=== PATIENT | female | born 1970 ===

== ENCOUNTER 2025-01-12 08:00 | Day surgery (SDC) | payer OTHER ==
[2025-01-12] MEDS ORDERED: MIDAZOLAM HCL 2 MG/2 ML VIAL IV ONE (12:00)
[2025-01-12] MEDS ORDERED: fentaNYL CITRATE 50 MCG/ML AMPUL IV PUSH ONE (12:00)
[2025-01-12] MEDS ORDERED: DIPHENHYDRAMINE HCL 50 MG/ML VIAL 1ML IV ONE (12:00)
== END 2025-01-12 13:35 | disposition home or self-care (01) ==
LOC: CIR.AMB 08:00
PROVIDERS: ATTEND Colon & Rectal Surgery
DX: C20 Malignant neoplasm of rectum (principal); Z91.041 Radiographic dye allergy status

== ENCOUNTER 2025-02-16 11:11 | Inpatient (IN) | payer OTHER ==
[~2025-02-16] VITALS: Wt 44.0 kg
[2025-02-22] MEDS ORDERED: RINGERS SOLUTION,LACTATED 1,000 ML IV SCH (14:30)
[2025-02-22 17:46] VITALS: BP 133/74; O2SAT 100
[2025-02-22 20:26] LABS: INR 1.17
[2025-02-22 20:40] LABS: T4 TOTAL 10.64 UG/DL (4.8-13.9); TSH 2.01 uIU/mL (0.358-3.74)
[2025-02-23 02:23] VITALS: BP 133/72; O2SAT 98
[2025-02-23 08:00] VITALS: BP 131/77; O2SAT 97
[2025-02-23] MEDS ORDERED: FAMOTIDINE/PF 20 MG/2 ML VIAL IV SCH (09:00)
[2025-02-23 12:36] LABS: BASO % 0.4 % (0.1-1.2); EOS # 0.02 (0.04-0.54); EOS % 0.2 % (0.7-7.0); LYMPH # 1.31 (1.18-3.74); LYMPH % 15.9 % (19.3-53.1); MEAN PLATELET VOLUME 8.70 fl (9.4-12.4); MONO # 0.77 (0.24-0.82); MONO % 9.4 % (4.7-12.5); NEUT # 6.07 (1.56-6.13); NEUT % 73.7 % (34.0-71.1); RED CELL DISTRIBUTION WIDTH 16.7 % (11.6-14.4)
[2025-02-23 13:17] LABS: NEUTROPHILS MAN 69.0 %
[2025-02-23 13:18] LABS: BAND MAN 5.0 %; LYMPHOCYTE MAN 13.0 %; MONOCYTE MAN 8.0 %
[2025-02-23] MEDS ORDERED: PHYTONADIONE 10 MG/ML AMPUL IV NR (14:00)
[2025-02-23] MEDS ORDERED: POLYETHYLENE GLYCOL 3350 238 GM POWDER PO NR (14:00)
[2025-02-23 16:00] VITALS: BP 118/76; O2SAT 99
[2025-02-23] MEDS ORDERED: BISACODYL 5 MG TABLET.EC PO SCH (21:00)
[2025-02-23 23:52] VITALS: BP 128/80; O2SAT 98
[2025-02-24] MEDS ORDERED: MINERAL OIL 133 ML ENEMA RECTAL SCH (05:00)
[2025-02-24] MEDS ORDERED: BUPIVACAINE HCL/MPF 0.5% 30ML VIAL ONE (07:11)
[2025-02-24] MEDS ORDERED: LIDOCAINE HCL 1%/EPINEPHRINE 20ML VIAL IJ ONE (07:12)
[2025-02-24] MEDS ORDERED: CEFTRIAXONE SODIUM 2,000 MG VIAL ONE (07:21)
[2025-02-24] MEDS ORDERED: METRONIDAZOLE/SODIUM CHLORIDE 500 MG/100 ML PIGGYBACK IV ONE (07:22)
[2025-02-24] MEDS ORDERED: POVIDONE-IODINE 118 ML BOTT TOP ONE (07:55)
[2025-02-24] MEDS ORDERED: CHLORHEXIDINE GLUCONATE 120 ML BOTTLE TOP ONE (07:55)
[2025-02-24] MEDS ORDERED: DEXTROSE 50 % IN WATER 0.5 G/ML DISP.SYRIN IV PRN (11:45)
[2025-02-24] MEDS ORDERED: RINGERS SOLUTION,LACTATED 1,000 ML IV SCH (11:45)
[2025-02-24] MEDS ORDERED: OxyCODONE HCL 5 MG TABLET (ROXICODONE) PO PRN (11:45)
[2025-02-24] MEDS ORDERED: MORPHINE SULFATE 4 MG/ML CARTRIDGE IV PRN (11:45)
[2025-02-24] MEDS ORDERED: ONDANSETRON HCL 2 MG/ML VIAL IV PRN (11:45)
[2025-02-24 12:53] LABS: BASO % 0.3 % (0.1-1.2); EOS # 0.02 (0.04-0.54); EOS % 0.3 % (0.7-7.0); LYMPH # 1.25 (1.18-3.74); LYMPH % 16.7 % (19.3-53.1); MEAN PLATELET VOLUME 9.20 fl (9.4-12.4); MONO # 0.48 (0.24-0.82); MONO % 6.4 % (4.7-12.5); NEUT # 5.71 (1.56-6.13); NEUT % 76.0 % (34.0-71.1); RED CELL DISTRIBUTION WIDTH 16.8 % (11.6-14.4)
[2025-02-24] MEDS ORDERED: HYOSCYAMINE SULFATE 0.125 MG TAB.SUBL SL SCH (13:00)
[2025-02-24 13:44] LABS: BUN CREA RATIO 11.0 (7.0-25.0); CREATININE SERUM 0.65 mg/dL (0.55-1.02); GFR 94.99; GLUCOSE FASTING 101.0 mg/dL (65-100); OSMOLALITY SERUM 278.0 MOSM/KG (275-295)
[2025-02-24] MEDS ORDERED: ACETAMINOPHEN 500 MG GEL..CAP PO SCH (14:00)
[2025-02-24] MEDS ORDERED: MAGNESIUM SULFATE IN WATER 50 ML IV NR (14:15)
[2025-02-24 16:00] VITALS: BP 106/54; O2SAT 99
[2025-02-24] MEDS ORDERED: POTASSIUM CHLORIDE 20MEQ/100ML H2O PB IV NR (16:30)
[2025-02-24] MEDS ORDERED: CELECOXIB 200 MG CAPSULE PO SCH (17:00)
[2025-02-24] MEDS ORDERED: LACTULOSE 20 G/30 ML BLIST.PACK PO SCH (17:00)
[2025-02-24] MEDS ORDERED: GABAPENTIN 300 MG CAPSULE PO SCH (17:00)
[2025-02-24] MEDS ORDERED: FAMOTIDINE/PF 20 MG/2 ML VIAL IV PUSH SCH (21:00)
[2025-02-25 00:30] VITALS: BP 105/62; O2SAT 98
[2025-02-25] MEDS ORDERED: MINERAL OIL 133 ML ENEMA RECTAL SCH (05:00)
[2025-02-25 06:26] LABS: BASO % 0.3 % (0.1-1.2); EOS # 0.10 (0.04-0.54); EOS % 1.3 % (0.7-7.0); LYMPH # 1.32 (1.18-3.74); LYMPH % 17.4 % (19.3-53.1); MEAN PLATELET VOLUME 9.00 fl (9.4-12.4); MONO # 0.43 (0.24-0.82); MONO % 5.7 % (4.7-12.5); NEUT # 5.67 (1.56-6.13); NEUT % 74.9 % (34.0-71.1); RED CELL DISTRIBUTION WIDTH 17.1 % (11.6-14.4)
[2025-02-25 07:01] LABS: BUN CREA RATIO 9.0 (7.0-25.0); CREATININE SERUM 0.86 mg/dL (0.55-1.02); GFR 68.76; GLUCOSE FASTING 92.0 mg/dL (65-100); OSMOLALITY SERUM 283.0 MOSM/KG (275-295)
[2025-02-25] MEDS ORDERED: AMINO ACIDS/PROTEIN HYDROLYS 30 ML BLIST.PACK PO SCH (09:00)
[2025-02-25 09:01] VITALS: BP 135/72; O2SAT 96
[2025-02-25] MEDS ORDERED: MAGNESIUM SULFATE IN WATER 50 ML IV NR (13:00)
[2025-02-25] MEDS ORDERED: POTASSIUM CHLORIDE 20MEQ/100ML H2O PB IV NR (16:00)
[2025-02-25 16:15] VITALS: BP 125/73; O2SAT 98
[2025-02-25] MEDS ORDERED: ENOXAPARIN SODIUM 40 MG/0.4 ML SYRINGE SUBCUTANEO SCH (17:00)
[2025-02-26 00:34] VITALS: BP 121/66; O2SAT 98
[2025-02-26 06:12] LABS: BASO % 0.2 % (0.1-1.2); EOS # 0.13 (0.04-0.54); EOS % 1.4 % (0.7-7.0); LYMPH # 1.57 (1.18-3.74); LYMPH % 17.1 % (19.3-53.1); MEAN PLATELET VOLUME 8.80 fl (9.4-12.4); MONO # 0.50 (0.24-0.82); MONO % 5.5 % (4.7-12.5); NEUT # 6.90 (1.56-6.13); NEUT % 75.4 % (34.0-71.1); RED CELL DISTRIBUTION WIDTH 17.2 % (11.6-14.4)
[2025-02-26 06:47] LABS: BUN CREA RATIO 20.0 (7.0-25.0); CREATININE SERUM 0.81 mg/dL (0.55-1.02); GFR 73.68; GLUCOSE FASTING 112.0 mg/dL (65-100); OSMOLALITY SERUM 285.0 MOSM/KG (275-295)
[2025-02-26 08:53] VITALS: BP 123/77; O2SAT 99
[2025-02-26] MEDS ORDERED: ENOXAPARIN SODIUM 40 MG/0.4 ML SYRINGE SUBCUTANEO SCH (09:00)
[2025-02-26] MEDS ORDERED: POTASSIUM CHLORIDE 8 MEQ TABLET PO STA (10:07)
[2025-02-26] MEDS ORDERED: GABAPENTIN300 MG PO (15:45)
[2025-02-26] MEDS ORDERED: PAIN RELIEVER500 M2 PO (15:45)
[2025-02-26 16:00] VITALS: BP 147/71; O2SAT 98
== END 2025-02-26 22:03 | disposition home or self-care (01) | DRG 331 ==
LOC: SURH 02-22 11:41
PROVIDERS: Internal Medicine Geriatric Medicine; ADMIT Colon & Rectal Surgery; ATTEND Colon & Rectal Surgery
PROC: 30233N1 Transfusion of Nonautologous Red Blood Cells into Peripheral Vein, Percutaneous Approach (ICD-10-PCS; 2025-02-22)
PROC: B246ZZZ Ultrasonography of Right and Left Heart (ICD-10-PCS; 2025-02-23)
PROC: 0DN84ZZ Release Small Intestine, Percutaneous Endoscopic Approach (ICD-10-PCS; 2025-02-24)
PROC: 0DNW4ZZ Release Peritoneum, Percutaneous Endoscopic Approach (ICD-10-PCS; 2025-02-24)
PROC: 0DNU4ZZ Release Omentum, Percutaneous Endoscopic Approach (ICD-10-PCS; 2025-02-24)
PROC: 0D1B4Z4 Bypass Ileum to Cutaneous, Percutaneous Endoscopic Approach (ICD-10-PCS; principal; 2025-02-24 07:00)
DX: C20 Malignant neoplasm of rectum (principal); D64.9 Anemia, unspecified; R00.0 Tachycardia, unspecified; K66.0 Peritoneal adhesions (postprocedural) (postinfection)